=== PATIENT | male | born 1940 | race African-American/Black ===

== ENCOUNTER → 2016-08-14 | Outpatient (CLI) | payer MEDICARE, BC ==
[~2016-08-14] MED LIST: ATENOLOL PO; BENAZEPRIL PO; CAPTOPRIL PO; LEVAQUIN PO; NAPROXEN PO; PROTONIX PO; ZYLOPRIM PO
--- NOTE | ~2016-08-14 | CR150 ---
[facility] A Service of [facility] & [facility] RADIOLOGY TEXT RESULTS PATIENT: GRIFFIN HERNANDEZ JR LOCATION: [facility] : 40 UNIT #: [id number] AGE: [address]: Azul Vinson APRN SEX: M ORDER DR: [id number] [facility] [address] [place], [place] [address] [id number] O MR#: [id number] Acc #: [id number] NAME: GRIFFIN HERNANDEZ : 1940 SEX: M STUDY DATE/TIME: 08/14/2016 12:05 UNIT: [facility] ROOM: STUDY DESCRIPTION: CR Hip Min 2 Views Lt Attending Physician: Azul Vinson A.P.R.N. Referring Physician: Azul Vinson A.P.R.N. Ordering Physician: Azul Vinson A.P.R.N. Primary Care Physician: Mary Lou Vance M.D. MEDICAL IMAGING REPORT This report is preliminary unless electronic signature is present EXAM Left hip series 08/14/2016 HISTORY 76-year-old male with chronic bilateral hip pain, present for about 3 years. No reported acute injury. TECHNIQUE 2 view left hip series. FINDINGS The examination is negative. No fracture, dislocation, arthropathy or other osseous abnormality. Degenerative changes in the visualized lower lumbar spine. IMPRESSION Negative left hip. Dictated by... Tony Alas M.D. THIS IS AN ELECTRONICALLY VERIFIED REPORT Tony Alas M.D. at 08/17/2016 5:58 AM TERRY/rivas TD: 08/15/2016 07:31 JOB #: [id number] MEDICAL IMAGING REPORT Page 1 of 1 COPY
--- NOTE | ~2016-08-14 | CR151 ---
[facility] A Service of [facility] & [facility] RADIOLOGY TEXT RESULTS PATIENT: GRIFFIN HERNANDEZ JR LOCATION: [facility] : 40 UNIT #: [id number] AGE: [address]: Azul Vinson APRN SEX: M ORDER DR: [id number] [facility] [address] [place], [place] [address] [id number] O MR#: [id number] Acc #: [id number] NAME: GRIFFIN HERNANDEZ : 1940 SEX: M STUDY DATE/TIME: 08/14/2016 12:04 UNIT: [facility] ROOM: STUDY DESCRIPTION: CR Hip Min 2 Views Rt Attending Physician: Azul Vinson A.P.R.N. Referring Physician: Azul Vinson A.P.R.N. Ordering Physician: Azul Vinson A.P.R.N. Primary Care Physician: Mary Lou Vance M.D. MEDICAL IMAGING REPORT This report is preliminary unless electronic signature is present EXAM Right hip 08/14/2016 HISTORY 76-year-old male complaining of chronic bilateral hip pain, present for at least 3 years. No reported acute injury. TECHNIQUE 2 view right hip series. FINDINGS No fracture, dislocation or other acute osseous abnormality is demonstrated involving the right hip. 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 This appears stable when compared with an older examination of 03/25/2002. This is likely related to old injury, correlate clinically. Note is also made of significant degenerative changes in the visualized lowest lumbar spine. IMPRESSION 1. Negative right hip. 2. 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 This is most likely related to old injury, correlate clinically. Dictated by... Tony Alas M.D. THIS IS AN ELECTRONICALLY VERIFIED REPORT Tony Alas M.D. at 08/17/2016 5:58 AM RGW/lulas [facility] A Service of [facility] & [facility] RADIOLOGY TEXT RESULTS PATIENT: GRIFFIN HERNANDEZ JR LOCATION: [facility] : 40 UNIT #: [id number] AGE: [address]: Azul Vinson APRN SEX: M ORDER DR: TD: 08/15/2016 07:25 JOB #: [id number] MEDICAL IMAGING REPORT Page 1 of 1 COPY
== END | disposition home or self-care (01) ==
LOC: CRAD 11:49
DX: M25.551 Pain in right hip (principal); M25.552 Pain in left hip; M89.8X8 Other specified disorders of bone, other site
CPT/HCPCS: 73502